=== PATIENT | female | born 1990 | race Caucasian/White ===

== ENCOUNTER 2016-05-28 21:56 | Emergency (ER) | payer BC, MEDICAID ==
[2016-05-28 22:11] VITALS: RESP 16; TEMP 98.2
--- NOTE | 2016-05-28 23:39 | EDPHY ---
H & P Stated Complaint: Left arm rash, redness-Hx impetigo, ? Allergy herbals. Time Seen by Provider: 05/28/16 23:09 HPI/ROS: CHIEF COMPLAINT: Rash to left arm HISTORY OF PRESENT ILLNESS: 25-year-old female presents to the emergency department complaining of a rash to her left arm that started after rubbing Edwards seal root mixed with tea tree oral to her arm. Patient reports she has a history of impetigo and felt like she was getting a rash to her arm like impetigo so she put this cream on there. Patient has use tea tree oil on her skin before but this was the 1st time she used Edwards seal root. She immediately became red where the cream was placed with mild itching and burning. No shortness of breath, no tongue swelling, no difficulty breathing. REVIEW OF SYSTEMS: A comprehensive 10 point review of systems is otherwise negative aside from elements mentioned in the history of present illness. Source: Patient Exam Limitations: No limitations - Personal History LMP (Females 10-55): Now Current Tetanus/Diphtheria Vaccine: Unsure Current Tetanus Diphtheria and Acellular Pertussis (TDAP): Unsure - Medical/Surgical History Hx Asthma: No Hx Chronic Respiratory Disease: No Hx Diabetes: No Hx Cardiac Disease: No Hx Renal Disease: No Hx Cirrhosis: No Hx Alcoholism: No Hx HIV/AIDS: No Hx Splenectomy or Spleen Trauma: No Other PMH: anxiety, impetigo, ORIF L arm. - Social History Smoking Status: Former smoker - Physical Exam Exam: GEN: Awake, alert, oriented, no acute distress RESP: nl resp effort MSK: Normal appearing, full range of motion of left wrist, elbow and shoulder SKIN: Left forearm with erythema, mildly raised with urticaria, warm, no break in skin, no lymphangitic streaking, 2+ radial pulses, sensation intact to light touch Constitutional: Initial Vital Signs Temperature (C) 36.8 C 05/28/16 22:04 Heart Rate 115 H 05/28/16 22:04 Respiratory Rate 16 05/28/16 22:04 Blood Pressure 134/105 H 05/28/16 22:04 O2 Sat (%) 95 05/28/16 22:04 O2 Delivery Mode Room Air Allergies/Adverse Reactions: gluten Allergy (Mild, Verified 05/28/16 22:11) Abdominal Pain Home Medications: Medication Instructions Recorded Goldseal 05/28/16 Riechi Mushroom 05/28/16 Departure - Departure Disposition: Home, Routine, Self-Care Clinical Impression: Contact dermatitis Qualifiers: Contact dermatitis type: allergic Contact dermatitis trigger: other chemical product Qualifier Code: (L23.5) Allergic contact dermatitis due to other chemical products Condition: Good Instructions: Contact Dermatitis (ED) Additional Instructions: Cool compresses, take 25-50 mg of Benadryl every 8 hours as needed for itching and redness. Do not use the Edwards seal root again. Return to the emergency department for worsening symptoms, shortness of breath, difficulty breathing, tongue swelling, any other questions or concerns. Follow-up with your primary care doctor for re-evaluation for symptoms that are not improving in the next 2- 3 days. Referrals: Kaylyn Zhang PA [Primary Care Provider] - As per Instructions
[2016-05-28 23:46] VITALS: BP 124/75; PULSE 91; O2SAT 98
== END 2016-05-28 23:51 | disposition home or self-care (01) ==
DX: L23.5 Allergic contact dermatitis due to other chemical products (principal); Z87.891 Personal history of nicotine dependence